=== PATIENT | female | born 1970 | race Two or more races ===

== ENCOUNTER 2019-01-24 07:56 | Outpatient (CLI) | payer OTHER ==
[2019-01-27] MEDS ORDERED: TOPROL XL50 M1 PO (10:10)
[2019-01-27] MEDS ORDERED: EFESOR PO (10:11)
[2019-01-27] MEDS ORDERED: ESTAZOLAM2 MG PO (10:12)
[2019-01-27] MEDS ORDERED: ATIVAN1 M1 PO (10:12)
[2019-01-27] MEDS ORDERED: HORIZANT300 MG PO (10:13)
[2019-01-27] MEDS ORDERED: [UNRECOGNIZED DRUG - OTHER] PO (10:13)
[2019-01-27] MEDS ORDERED: RISPERDAL0.5 MG PO (10:13)
[2019-01-27] MEDS ORDERED: NEURO PO (10:14)
[2019-01-27] MEDS ORDERED: SINGULAIR10 MG PO (10:14)
[2019-01-27] MEDS ORDERED: KETOROLAC (10:15)
[2019-01-27] MEDS ORDERED: NORFLEX (10:16)
[2019-01-30] MEDS ORDERED: EFFEXOR XR150 MG PO (08:11)
[2019-01-30] MEDS ORDERED: NORFLEX100MG PO (08:12)
[2019-01-30] MEDS ORDERED: KETO10TA2 PO (08:13)
[2019-01-30] MEDS ORDERED: NEURONTIN300 MG PO (08:14)
[2019-01-30] MEDS ORDERED: TRAZODONE HCL100 MG PO (08:15)
[2019-01-30] MEDS ORDERED: GABAPENTIN600 MG PO (08:15)
[2019-01-30] MEDS ORDERED: ZANAFLEX4 MG PO (08:15)
[2019-01-31] MEDS ORDERED: OXYC1TAB9 PO (10:03)
[2019-01-31] MEDS ORDERED: MIRALAX17 GM PO (10:04)
== END 2019-01-24 08:07 | disposition home or self-care (01) ==
LOC: TOM 07:56
DX: C20 Malignant neoplasm of rectum (principal); R19.4 Change in bowel habit; R19.5 Other fecal abnormalities
CPT/HCPCS: 71046; 74177; Q9965

== ENCOUNTER 2020-01-13 05:30 | Day surgery (SDC) | payer OTHER ==
[~2020-01-13 05:30] MED LIST: ATIVAN1 M1 PO; EFESOR PO; EFFEXOR XR150 MG PO; ESTAZOLAM2 MG PO; GABAPENTIN600 MG PO; HORIZANT300 MG PO; KETO10TA2 PO; KETOROLAC; MIRALAX17 GM PO; NEURO PO; NEURONTIN300 MG PO; NORFLEX; NORFLEX100MG PO; OXYC1TAB9 PO; RISPERDAL0.5 MG PO; SINGULAIR10 MG PO; TOPROL XL50 M1 PO; TRAZODONE HCL100 MG PO; ZANAFLEX4 MG PO; [UNRECOGNIZED DRUG - OTHER] PO
== END 2020-01-13 09:50 | disposition home or self-care (01) ==
LOC: AMB-ENDOS 05:30
PROVIDERS: ATTEND Surgery
DX: K62.0 Anal polyp (principal); A63.0 Anogenital (venereal) warts; Z20.828 Contact with and (suspected) exposure to other viral communicable diseases

== ENCOUNTER 2021-02-01 05:55 | Day surgery (SDC) | payer OTHER | END 2021-02-01 10:55 | disposition home or self-care (01) | LOC: AMB-ENDOS 05:55 | PROVIDERS: ATTEND Surgery | DX: D12.8 Benign neoplasm of rectum (principal) ==